=== PATIENT | male | born 1990 | race African-American/Black ===

== ENCOUNTER 2025-06-28 17:25 | Emergency (ER) | payer SELFPAY ==
[~2025-06-28] VITALS: Ht 177.8 cm; Wt 88.5 kg
[~2025-06-28 17:25] MED LIST: ALBU0.63 IH; PRED50TA PO; VALA10002 PO
[2025-06-28] MEDS ORDERED: FLUORESCEIN SODIUM 1 MG STRIP ONE (18:01)
[2025-06-28] MEDS: FLUORESCEIN SODIUM 1 MG STRIP OP ONE (18:07)
[2025-06-28] MEDS ORDERED: VALA10002 PO (18:18)
[2025-06-28 18:29] VITALS: O2SAT 97
== END 2025-06-28 18:29 | disposition home or self-care (01) ==
LOC: ER 17:25
DX: B00.9 Herpesviral infection, unspecified (principal); J45.909 Unspecified asthma, uncomplicated; Z79.52 Long term (current) use of systemic steroids; Z79.624 Long term (current) use of inhibitors of nucleotide synthesis
CPT/HCPCS: A4606; A4663